=== PATIENT | male | born 1955 | race Caucasian/White ===

== ENCOUNTER 2016-07-28 16:18 | Inpatient (IN) | payer OTHER ==
--- NOTE | ~2016-07-28 | HP ---
Unit #: [id number] #: [id number] Patient: BERNICE GALLAGHER [id number] [address] [place], [place] [address] [id number] I MR#: [id number] NAME: BERNICE GALLAGHER. ROOM: 55 Age: 61 Sex: M Admission Date: 07/28/2016 : 1955 Attending Physician: Edward Marino M.D. Referring Physician: Edward Marino M.D. Primary Care Physician: [facility], HISTORY AND PHYSICAL HISTORY OF PRESENT ILLNESS This is a pleasant, 61-year-old male known to Dr. Marino. He has a past medical history of known coronary artery disease with cardiac catheterization on 04/05/2015 which showed 100% stenosis in the mid RCA, 75% stenosis in the mid LAD, and 75% stenosis in the first marginal branch of the circumflex, EF at that time was 20% to 25%, hypertension, hyperlipidemia, diabetes mellitus type 2, ischemic cardiomyopathy, status post AICD placement in January 2016, COPD, chronic kidney disease and continued tobacco abuse. The patient had been treated with medical management. He presented to [facility] after complaints of right-sided chest pain. The patient reports he was at home in his typical state of health. He had been sleeping when he awoke from sleep at approximately 11:30 or 12 o'clock with complaints of right-sided chest pain. He described the pain as sharp in nature, different from any pain he had ever felt before. He said it was also associated with diaphoresis, nausea and vomiting. Patient reports this scared him and he therefore sought treatment at the emergency room at [facility]. He was evaluated there and felt needed to be transferred here for further workup. Initial troponins here have been negative x2. EKG shows normal sinus rhythm, 68 beats per minute, nonspecific ST and T-wave abnormality in the inferolateral leads, QTc interval of 425 msec. At present he is resting in bed. His daughters are at the bedside. He denies any complaints at this time of further chest pain and states he is wanting to go home. Of note the patient does report that he has been walking some at [facility] when he goes out. He walks the length of the store and has noted increasing shortness of breath with exertion as well as increasing fatigue. However, he denies any complaints of chest pain during his walks. He denies any PND or orthopnea, denies any lower extremity swelling and states he has been compliant with all of his medications. He does continue to smoke. At present there are no signs and symptoms of congestive heart failure. The chest x-ray shows no fluid overload. PAST MEDICAL HISTORY 1. Known coronary artery disease, status post cardiac catheterization 04/05/2015 per Jamila Plasencia which revealed 100% stenosis of the mid RCA, 75% stenosis of the mid LAD and 75% stenosis of the first marginal Unit #: [id number] #: [id number] Patient: BERNICE GALLAGHER branch of the circumflex. Medical management was recommended. 2. Two-D echocardiogram in March of 2015 also shows LVEF of 20% to 25% with moderate MR. 3. Status post AICD placement January 2016 at [facility]. 4. COPD. 5. Diabetes mellitus type 2. 6. History of systolic congestive heart failure. 7. Hypertension. 8. Hyperlipidemia. 9. Chronic kidney disease. 10. Continued tobacco abuse. Patient reports he has been cutting back, states he smokes about a pack every three days. PAST SURGICAL HISTORY 1. Cardiac catheterization in the past with angioplasty at [facility] in 2006. 2. Also cardiac catheterization 2014. SOCIAL HISTORY Patient lives at home. He has a very supportive family. His daughters are present at bedside. He denies any alcohol, other than an occasional been, or illicit drug use, does have a history of smoking, states he has been cutting back. He usually smokes now about one pack every three days between him and his . ALLERGIES Shellfish. HOME MEDICATIONS 1. Lasix 20 mg p.o. daily with additional 20 if increasing shortness of breath. 2. Nitroglycerin 0.4 mg sublingual one q.5 minutes x3 doses p.r.n. chest pain. 3. Vitamin D 50,000 units p.o. weekly. 4. Symbicort 160/4.5 two puffs inhalation b.i.d. 5. ProAir two puff inhalation q.i.d. 6. Trazodone 50 mg p.o. b.i.d. 7. Multivitamin one tab p.o. daily. 8. Wellbutrin 150 mg p.o. b.i.d. 9. Aspirin 81 mg p.o. daily. 10. Lipitor 80 mg p.o. q.h.s. 11. Cozaar 50 mg p.o. daily. 12. Carvedilol 12.5 mg p.o. b.i.d. REVIEW OF SYSTEMS Review of systems was negative except for what was stated above in the HPI. PHYSICAL EXAMINATION GENERAL: This is a pleasant 61-year-old male in no acute distress. He is resting in bed. He appears comfortable. His family is at bedside. VITAL SIGNS: Temperature 97.6, respiratory rate 18 to 20, pulse 60s, blood pressure 123/69. HEENT: Trachea is midline. No thyromegaly. No lymphadenopathy. No carotid bruits. No JVD. HEART: S1, S2. No murmur, gallop or rub. CHEST: Breath sounds are diminished, worse on the right greater than Unit #: [id number] #: [id number] Patient: AILEEN,BERNICE W left. ABDOMEN: Soft, nontender, nondistended, obese. EXTREMITIES: Pulses are palpable. No pedal edema. No clubbing or cyanosis. DIAGNOSTIC STUDIES IMAGING: Chest x-ray shows no acute pulmonary findings. LABORATORY: Glucose 136, potassium 4.2, chloride 103, CO2 27, BUN 16, creatinine 1.7, glucose 192, troponins have been negative x2, hemoglobin 12.3, hematocrit 37.5, WBC is 5.9 and platelet count 220, triglycerides are 282, HDL is 26. CARDIOVASCULAR: EKG atrial paced rhythm, nonspecific ST/T wave abnormality. IMPRESSION 1. Chest pain, appears atypical. Cardiac enzymes thus far have been negative. However, the patient has a history of known three-vessel coronary artery disease with 100% stenosis in the right coronary artery, 75% in the obtuse marginal and 75% to 80% in the left anterior descending with an left ventricular ejection fraction of approximately 30%. 2. Ischemic cardiomyopathy. 3. Chronic obstructive pulmonary disease. 4. Hypertension. 5. Hyperlipidemia. 6. Diabetes mellitus type 2. 7. Continued tobacco abuse. 8. Status post automatic implantable cardioverter defibrillator in January 2016, [facility]. PLAN The patient has been admitted for evaluation. Thus far his cardiac enzymes have remained negative. His chest pain appears atypical. However, in lieu of his multivessel coronary artery disease will plan to proceed with Cardiolite Lexiscan to evaluate for any progression of his disease in his LAD or left circ. He may need a cardiac catheterization with FFR measurements performed if the stress is abnormal. This has been discussed with the patient and he is agreeable. At present he will be continued on his current medication regimen and will check labs in the a.m. as well as check a fasting lipid panel and add a hemoglobin A1C to determine how well controlled his diabetes has been. Further recommendations pending the outcome of his Lexiscan Cardiolite later this afternoon. If the patient does need cardiac catheterization would be recommended to have Renal see prior to him undergoing this to tweak up his kidneys prior to any due load. Also the patient has an allergy to shellfish and will need premedication prior to undergoing cardiac catheterization. Dictated by Pam Rome A.P.R.N. for Edward Marino M.D. Unit #: [id number] #: [id number] Patient: BERNICE GALLAGHER LMW/cf TD: 07/29/2016 20:15 JOB #: [id number] HISTORY AND PHYSICAL X Pam Rome APRN X HISTORY AND PHYSICAL
--- NOTE | ~2016-07-28 | DS ---
Unit #: [id number] #: [id number] Patient: BERNICE GALLAGHER [id number] [address] [address] [id number] I MR#: [id number] NAME: BERNICE GALLAGHER. ROOM: [facility] Age: 61 Sex: M Admission Date: 07/28/2016 : 1955 Discharge Date: 08/02/2016 Attending Physician: Edward Marino M.D. Referring Physician: Edward Marino M.D. Primary Care Physician: [facility] DISCHARGE SUMMARY DISCHARGE DIAGNOSES 1. Chest pain, ruled out for myocardial infarction. 2. Abnormal Lexiscan Cardiolite stress test on 07/29/2016, which revealed suspicion for large area of stress-induced ischemia involving the inferior wall, inferior apical, and inferoseptal wall of the left ventricle. Left ventricular ejection fraction calculated at 51%. Severe hypokinesis involving the inferior wall and the septum. High suspicion for significant coronary artery disease involving the right coronary artery territory. 3. Coronary artery disease, status post cardiac catheterization on 08/01/2016, which revealed left circumflex 70% to 75% in the proximal first obtuse marginal. Left anterior descending 75% to 80% at second septal law examiner and 60% at third septal law examiner. Right coronary artery 100% in mid segment. Distal right coronary artery fills via left to right collaterals. No LV gram due to renal insufficiency. Medical management. 4. 2D echocardiogram on 07/30/2016 was a technically difficult study. Ejection fraction 25% to 30%. Severe hypokinetic motion of the entire anteroseptal wall of the left ventricle. Moderate generalized hypokinesis of the left ventricle. Mild to moderate left ventricular hypertrophy. Impaired relaxation. Moderately enlarged right ventricle cavity with moderately reduced right ventricular function. Pacemaker/automatic implantable cardioverter-defibrillator wire seen in the right ventricle, mild tricuspid regurgitation, RVSP 28 mmHg. 5. History of ischemic cardiomyopathy with left ventricular ejection fraction 20% to 25% in 03/2015. 6. Valvular heart disease with moderate mitral regurgitation. 7. Previous cardiac catheterization in 03/2015 revealed a total chronic occlusion of the right coronary artery known since 2005. 8. Chronic obstructive pulmonary disease. 9. Hypertension. 10. Hyperlipidemia. 11. Chronic systolic congestive heart failure, now compensated. 12. Diabetes mellitus type 2, on insulin. 13. Chronic kidney disease, stage III. 14. Proteinuria. 15. Secondary hyperparathyroidism. 16. Continued tobacco abuse. DISCHARGE MEDICATIONS Albuterol 2 puffs inhalation q.i.d. as needed for shortness of breath, Symbicort 2 puffs inhalation b.i.d., Wellbutrin 150 mg p.o. b.i.d., trazodone 50 mg p.o. b.i.d., carvedilol 25 mg p.o. b.i.d., Lasix 40 mg in Unit #: [id number] #: [id number] Patient: AILEEN,BERNICE W the morning and 20 mg at night, Lipitor 80 mg p.o. at bedtime, losartan 25 mg p.o. daily, Humalog 22 units at breakfast and 18 units at dinner, multivitamin one tablet p.o. daily, aspirin 81 mg p.o. daily, Imdur 30 mg p.o. daily, nitroglycerin 0.4 mg sublingual as needed for chest pain, vitamin D 50,000 units p.o. weekly on Monday, Plavix 75 mg p.o. daily. HOSPITAL COURSE This is a 61-year-old white male, well known to Dr. Marino with a past medical history of coronary artery disease with a total chronic occlusion of the right coronary artery with collaterals from the left. The patient is known to have [id number] disease in the LAD and first obtuse marginal branch of the left circumflex. Additional past medical history includes hypertension, hyperlipidemia, diabetes mellitus type 2 on insulin, ischemic cardiomyopathy, status post AICD in 01/2016, COPD, and chronic kidney disease stage 3. The patient continues to use tobacco. He presented to [facility] with complaints of chest pain. The pain woke him from his sleep. Associating symptoms included diaphoresis, nausea, and vomiting. In the emergency department, initial cardiac enzymes were negative. EKG revealed sinus rhythm with nonspecific ST-T wave changes. He was transferred to [facility] for further evaluation. He underwent a Lexiscan Cardiolite stress test on 07/29/2016, which revealed a suspicion for large area stress-induced ischemia involving the inferior wall, inferior apical, and inferoseptal wall of the left ventricle. Left ventricular ejection fraction was calculated at 51%. 2D echocardiogram was completed on 07/30/2016 and was a technically difficult study, but revealed a left ventricular ejection fraction at 25% to 30% with severe hypokinesis of the entire anteroseptal wall of the left ventricle. There was mild to moderate LVH and some impaired relaxation. Mild tricuspid regurgitation was noted with a right ventricular systolic pressure of 28 mmHg. The patient was recommended for cardiac catheterization due to abnormal stress test. His Cozaar was placed on hold. Due to a suspected dye allergy, he was premedicated with Pepcid, prednisone, and Benadryl. Nephrology was consulted due to chronic kidney disease. The patient was placed on some fluids and Mucomyst. He was cleared for the cardiac catheterization by Nephrology. His Lasix was placed on hold in addition to his ARB. He underwent a cardiac catheterization on 08/01/[address] Marino. Coronary angiography revealed a 70% to 75% stenosis in the proximal first obtuse marginal. There was a 75% to 80% stenosis of the second septal law examiner of the LAD and a 60% stenosis at the third septal law examiner of the LAD. The right coronary artery remained chronically occluded as from previous study. The distal right coronary filled via left to right collaterals. The patient tolerated the procedure well without complication. He was tried on medical management. He was advised that if worsening symptoms of congestive heart failure occurred including shortness of breath or edema that he will need to have repeat cardiac catheterization with stent placement of the LAD and left circumflex. The patient's Lasix has been increased. His losartan has been decreased due to renal insufficiency. Telemetry reveals sinus rhythm with no arrhythmias. His carvedilol has been increased. He remains on aspirin and a high-dose statin. His Plavix has been restarted. He is on a long-acting nitrate. He has ambulated without complaints of chest pain or shortness of breath. There is no evidence of congestive heart failure on exam. He is stable and will be discharged home today. He is instructed to follow up in the office or to proceed back to the hospital for chest pain or symptoms of congestive heart failure. Post catheterization instructions have been provided as well. CHF education. The patient has been instructed to follow up with Unit #: [id number] #: [id number] Patient: BERNICE GALLAGHER Dr. Miner in 4 to 6 weeks. He has been advised to refrain from tobacco abuse and to be compliant with medications. The patient's creatinine was 1.8 at the time of evaluation, and is currently 1.6 today. The patient's diabetes appears uncontrolled. His blood glucose levels have been in the 200s during hospitalization and his A1c resulted 10.3. He is instructed to follow up with his primary care and to work on getting his diabetes under better control. TUBE SORTER Dr. Miner with Nephrology. DIAGNOSTIC STUDIES LABORATORY RESULTS: Include white blood cell count of 6.6, hemoglobin 12.7, hematocrit 36.4, platelets 231. Sodium 135, potassium 4.2, creatinine 1.6, glucose 256. PT 10.7, INR 1.0. Troponin 0.03, 0.03, and 0.03. Hemoglobin A1c 10.3. Total cholesterol 121, triglycerides 282, LDL 39, HDL 26. IMAGING STUDIES: None. CARDIOVASCULAR STUDIES: EKG reveals sinus rhythm with ST and T-wave abnormality in the inferior leads. ST-T wave changes in the anterolateral leads. QTc 416 milliseconds. PHYSICAL EXAMINATION VITAL SIGNS: Temperature 98, pulse 69, and blood pressure 106/68. CONSTITUTIONAL: This is a 61-year-old white male, in no acute distress. SKIN: Warm and dry. NECK: Supple. No jugular vein distention. No hepatojugular reflux. Normal carotid upstrokes. No carotid bruits auscultated. HEART: S1 and S2. Regular rate and rhythm. No murmurs, rubs, or gallops. Cath site is soft without hematoma. LUNGS: Bilateral breath sounds have good air entry throughout all lung yusuf. Respirations are even and nonlabored. No rales, rhonchi, or wheezes. ABDOMEN: Soft, nontender, and nondistended. Positive bowel sounds auscultated x4 quadrants. No ascites noted. EXTREMITIES: Bilateral lower extremities have no pretibial pitting edema. DP and PT pulses are 2+. Capillary refill is less than 2 seconds. DISCHARGE INSTRUCTIONS 1. The patient will be discharged home today. 2. Follow up with primary care provider in 1 to 2 weeks. 3. Follow up with Dr. Miner in 4 to 6 weeks. 4. Follow up with Dr. Marino on 08/29/2016 at 3:15 p.m. 5. Post catheterization instructions provided. 6. CHF education provided. 7. The patient has been instructed to call for weight gain greater than 3 pounds, shortness of breath, or worsening edema. 8. If the patient has signs of worsening congestive heart failure or develops recurrent chest pain, he will need to be considered for percutaneous coronary intervention of the left circumflex and LAD. 9. Prescriptions have been provided for Cozaar, Lasix, Coreg, Plavix, and nitroglycerin. 10. The patient has been advised to refrain from tobacco abuse and to control diabetes. Unit #: [id number] #: [id number] Patient: BERNICE GALLAGHER Dictated by... Zulema Baugh APRN for Yamileth Leal/quentin TD: 08/05/2016 06:04 JOB #: [id number] DISCHARGE SUMMARY Page 1 of 1 X X DISCHARGE SUMMARY
--- NOTE | ~2016-07-28 | TH ---
Unit #: [id number] #: [id number] Patient: BERNICE GALLAGHER [id number] [address] [address] [id number] I MR#: [id number] NAME: BERNICE GALLAGHER. : 1955 SEX: M STUDY DATE/TIME: UNIT: C5 ROOM: 557 STUDY DESCRIPTION: Nuclear Study Attending Physician: Edward Marino M.D. Referring Physician: Edward Marino M.D. Primary Care Physician: [facility] CARDIOLOGY REPORT EXAM Lexiscan Cardiolite Stress Test - Nuclear Portion PROCEDURE Using technetium 99m labeled Cardiolite, rest and stress SPECT images were obtained. Multiple SPECT images were obtained in various views including horizontal and vertical long axis and short axis views of the left ventricle. Images were obtained by gated SPECT method. The patient was administered 11.48 mCi of Cardiolite at rest. The patient was administered 31.5 mCi of Cardiolite after Lexiscan infusion was completed. On the stress images, there is a large area of severe decreased isotope activity involving the inferior wall and the inferoseptal wall of the left ventricle. The rest images show a medium size area of severe decreased isotope activity involving the inferior wall. Comparing rest and stress images, there is suspicion for significant ischemia involving the inferior, inferoapical and inferoseptal wall of the left ventricle. The left ventricular ejection fraction is calculated to be 51%. There is severe hypokinesis involving the inferior wall and the septum. CONCLUSION 1. Suspicion for large area of stress-induced ischemia involving the inferior wall, inferoapical and inferoseptal wall of the left ventricle. 2. The left ventricular ejection fraction is calculated to be 51%. 3. There is severe hypokinesis involving the inferior wall and the septum. 4. High suspicion for significant coronary artery disease involving the RCA territory. Clinical correlation is requested. Dictated by.Yamileth Blanca TD: 07/30/2016 06:54 JOB #: [id number] Unit #: [id number] #: [id number] Patient: BERNICE GALLAGHER CARDIOLOGY REPORT X Jayda Harrington MD <ELECTRONICALLY SIGNED> 12/03/16 [facility] CARDIOLOGY REPORT
--- NOTE | ~2016-07-28 | CO ---
Unit #: [id number] #: [id number] Patient: BERNICE GALLAGHER [id number] [address] [place], [place] [address] [id number] I MR#: [id number] NAME: BERNICE GALLAGHER. ROOM: 55 Age: 61 Sex: M Admission Date: 07/28/2016 : 1955 Attending Physician: Edward Marino M.D. Primary Care Physician: [facility] Consultation Date: 07/29/2016 CONSULTATION REPORT REASON FOR CONSULTATION Chronic kidney disease. HISTORY OF PRESENT ILLNESS Mr. Gallagher is a pleasant 61-year-old white male with known chronic kidney disease, familiar to our service, as I saw him back in 03/2015, who was readmitted for chest pain. The patient had an abnormal stress test and is going to need a heart catheterization on Monday. We were asked to see to do a prep for his heart cath with his chronic kidney disease. Despite his chronic heart problems, the patient continues to smoke but is trying to cut back. He states that he is actively been losing weight on a low carb diet, has not been retaining any fluid. He denies any shortness of breath at rest and did not have any necessarily with chest pain. He denies any urinary complaints. No swelling. He has not been using any NSAIDs. He has no history of kidney stones. PAST MEDICAL HISTORY Significant for coronary artery disease, COPD with continued tobacco abuse, hypertension, diabetes, gout, arthritis, and allergic rhinitis. PAST SURGICAL HISTORY He has had a LifeVest and a fibrillator in the past. HOME MEDICATIONS Lasix 20 mg b.i.d., nitroglycerin p.r.n., vitamin D weekly, Symbicort inhaler, ProAir inhaler, carvedilol 12.5 mg b.i.d., aspirin daily, Lipitor 80 mg daily, Humalog insulin, losartan 50 mg a day, trazodone 50 mg b.i.d., multivitamin daily, and Wellbutrin 150 mg b.i.d. ALLERGIES He has a shellfish allergy. FAMILY HISTORY Significant for kidney disease with several family members on dialysis, also has diabetes in the family. SOCIAL HISTORY The patient again continues to smoke, but is trying to cut back. No alcohol or drug abuse. REVIEW OF SYSTEMS A complete 12-point review of systems was completed with the above findings. In addition, he denies any headaches or dizziness. No fevers or chills. No nosebleed, sore throat, or earache. No palpitations. No Unit #: [id number] #: [id number] Patient: BERNICE GALLAGHER hemoptysis. No hematemesis. No bright red blood per rectum or melena. No abdominal pain. No dysuria. No hematuria. No rashes or itching. No flank pain. No night sweats or hot flashes. No intolerance to heat or cold. No bleeding issues. Unless otherwise indicated, the review of systems was negative. PHYSICAL EXAMINATION VITAL SIGNS: The patient is afebrile, pulse 62, respiratory rate 20, blood pressure 119/57. I's and O's positive by 360 mL. GENERAL: This is a pleasant 61-year-old male, sitting up in bed, watching the [employer] basketball games, in no acute distress. HEENT: Head is atraumatic and normocephalic. Eyes show pink conjunctivae with no scleral icterus. No nasal drainage or nosebleed. Oropharynx is moist. No thrush. NECK: Shows no rigidity. HEART: Regular rate and rhythm with murmur present. No rub appreciated. LUNGS: Clear with no wheezing, no rhonchi. Breathing is nonlabored. ABDOMEN: Soft, nontender, and nondistended. Bowel sounds are present. EXTREMITIES: No lower extremity cyanosis or pitting edema. SKIN: Dry. No rashes identified. GENITOURINARY: Deferred. MUSCULOSKELETAL: No CVA tenderness to palpation. NEUROLOGIC: Cranial nerves are grossly intact with no gross motor deficits. LYMPHATIC: There is no neck or cervical lymphadenopathy. PSYCHIATRIC: Mood and affect appear normal. DIAGNOSTIC STUDIES LABORATORY RESULTS: Troponin today was negative. Chemistry earlier today noteworthy for normal potassium of 4.2 and a creatinine of 1.8. Cholesterol 121, LDL 39. CBC was unremarkable. CK level was 25. Prior creatinines were reviewed and this creatinine of 1.8 looks to be right at his baseline. Hemoglobin A1c in 03/2015 was 6.1. Previous PTH level in 03/2015 was 91. Urinalysis in 2015 showed 1+ protein and no blood. IMAGING STUDIES: Kidney ultrasound on 04/06/2015 showed no hydronephrosis and smaller right kidney at 8.8 cm, left kidney was more difficult to visualize due to poor acoustic window, but there was no hydronephrosis. ASSESSMENT AND PLAN 1. Chronic kidney disease, stage 3. This is due to underlying hypertension and atherosclerotic disease. There may be some contribution from diabetes as well. His creatinine is at baseline and he will need a heart prep for his heart catheterization. We will leave him on his home medications for now, but hold his Lasix and losartan on Monday and prep with IV fluids overnight Monday into Monday. We will go ahead and start him on some Mucomyst just in case an emergent heart catheterization would be needed. 2. History of congestive heart failure with an ejection fraction of 20%. He also has right ventricular failure. The patient appears very well compensated on exam and his weight trend is actually down at home. 3. Proteinuria. We will continue losartan. I will be quantitating his urinary protein. 4. Hypertension. The patient's blood pressures are well controlled. 5. Continued tobacco abuse with a counseling provided to patient. He understands that he needs to quit. 6. Diabetes. 7. Coronary artery disease with abnormal stress with catheterization Unit #: [id number] #: [id number] Patient: BERNICE GALLAGHER pending. 8. Secondary hyperparathyroidism. I will be rechecking a PTH level and treating as needed. I would like to thank Dr. Marino for this consultation and the opportunity to participate in the evaluation and care of Mr. Gallagher. Dictated by... Manuel Miner Jr., Iraida. ELLIOT/quentin TD: 07/29/2016 23:25 JOB #: [id number] CONSULTATION REPORT X Manuel Miner MD X CONSULTATION REPORT
--- NOTE | ~2016-07-28 | EKG ---
PATIENT: BERNICE GALLAGHER UNIT #: [id number] Ventricular Rate: 72 BPM Atrial Rate: 72 BPM P-R Interval: 170 ms QRS Duration: 106 ms Q-T Interval: 380 ms QTC Calculation(Bezet): 416 ms P Magness: 80 degrees Calculated R Magness: 31 degrees Calculated T Magness: -108 degrees Diagnosis Line: Normal sinus rhythm Diagnosis Line: ST and T wave abnormality, consider inferior Diagnosis Line: ischemia Diagnosis Line: ST and T wave abnormality, consider anterolateral Diagnosis Line: ischemia Diagnosis Line: Abnormal ECG Diagnosis Line: When compared with ECG of 23-APR-2015 05:49, Diagnosis Line: T wave inversion more evident in Inferior leads Diagnosis Line: Confirmed by PIERRE BARRAGAN MD ([id number]) on 08/02/2016 Diagnosis Line: 4:38:04 AM INTERPRETING MD: LAUREL RODRIGUEZ
--- NOTE | ~2016-07-28 | HP ---
Unit #: [id number] #: [id number] Patient: BERNICE GALLAGHER [id number] [address] [address] [id number] MR#: [id number] NAME: BERNICE GALLAGHER. ROOM: [facility] Age: 61 Sex: M Admission Date: 07/28/2016 : 1955 Attending Physician: Edward Marino M.D. Referring Physician: Edward Marino M.D. Primary Care Physician: [facility]. HISTORY AND PHYSICAL ADDENDUM NOTE This is an addendum to J# [id number]. HOME MEDICATIONS 13. Humalog 22 units subcu at breakfast and 18 units subcu at dinner. Dictated by Pam Rome A.P.R.N. for Edward Marino M.D. LMW/cf TD: 07/29/2016 21:19 JOB #: [id number] HISTORY AND PHYSICAL X Pam Rome APRN HISTORY AND PHYSICAL
--- NOTE | ~2016-07-28 | ST ---
Unit #: [id number] #: [id number] Patient: BERNICE GALLAGHER [id number] [address] [address] [id number] I MR#: [id number] NAME: BERNICE GALLAGHER. : 1955 SEX: M STUDY DATE/TIME: 07/29/2016 UNIT: [id number] ROOM: 557 STUDY DESCRIPTION: Stress Test Attending Physician: Edward Marino M.D. Referring Physician: Edward Marino M.D. Primary Care Physician: [facility] CARDIOLOGY REPORT EXAM Walking Lexiscan REASON FOR EXAM Chest pain, known coronary artery disease. DESCRIPTION Baseline EKG shows normal sinus rhythm, rate of 86 beats/minute. ST-T wave abnormality is noted in the inferior lateral leads. The patient walked on the treadmill on a modified Kevin protocol with the initial intent to walk him as long as possible, per Dr. Marino's request. However, this was unable to be attained secondary to patient's extreme shortness of breath and chest tightness as well as fatigue, and leg weakness. 0.4 mg of Lexiscan was injected per protocol followed by Cardiolite while he was walking on the treadmill. During the infusion, the patient experienced complaints of shortness of breath, fatigue and, at approximately two minutes, right sided chest tightness. Rates at a 4 out of a 10 scale. There was no radiation of his pain. During the test, the patient's ST segments did worsen from baseline to approximately 2.[address] segment depression in the inferior lateral leads. There was no ectopy. The patient was only able to exercise for a total of 3 minutes 29 seconds. The test was stopped secondary to right sided chest pain, weakness in his legs and fatigue as well as shortness of breath. His chest discomfort resolved in the recovery period. IMPRESSION 1. Nondiagnostic EKG portion of walking Lexiscan Cardiolite secondary to baseline ST-T wave abnormalities. 2. There was worsening of his ST segment depression during his testing. ST segments worsened to approximately 2.5 to 3 mm depression in the inferior lateral leads. 3. The patient experienced right sided chest pain while on the treadmill, rated at a 4 out of a 10 scale with no radiation. This immediately resolved in the recovery period. He also complained of severe shortness of breath and fatigue as well as leg weakness. 4. There was no ectopy noted during the testing. 5. Please correlate with nuclear imaging. Unit #: [id number] #: [id number] Patient: BERNICE GALLAGHER Dictated by... Pam Rome A.P.R.N. for Yamileth Magdaleno/duong TD: 07/30/2016 06:59 JOB #: [id number] CARDIOLOGY REPORT X Pam Rome APRN CARDIOLOGY REPORT
[~2016-07-28 16:18] MED LIST: ACETAMINOPHEN325 MG PO; ALBUTEROL17 GM INH; AMOXICILLIN500 M1 PO; ASPIRIN325 M1 PO; ATENOLOL PO; BAYER ASPIRIN325 M1 PO; CLARITIN10 M2 PO; COLCRYS0.6 M2 PO; COLCRYS0.6 MG PO; COREG12.5 MG PO; COREG6.25 MG PO; DELTASONE20 MG PO; GLIPIZIDE10 MG PO; HUMIBID-LA600 MG PO; IMDUR-ER60 M1 PO; LASIX PO; LISINOPRIL20 MG PO; LISINOPRIL5 MG PO; LOVASTATIN20 MG PO; NITROGLYGERIN0.4 MG SL; PREDNISONE10 MG PO; PROAIR RESPICL90 MCG INH; SYMBICORT INH; VIBRAMYCIN100 M1 PO; VITAMIN D1000 UNIT PO; ZYLOPRIM100 MG PO
[2016-07-28] MEDS ORDERED: ASPIRIN81 M2 PO (17:45)
[2016-07-28] MEDS ORDERED: LIPITOR PO (17:46)
[2016-07-28] MEDS ORDERED: HUMALOG100 U/M1 (18:42)
[2016-07-28] MEDS ORDERED: LOSARTAN POTASS50 MG PO (18:42)
[2016-07-28] MEDS ORDERED: DESYREL50 MG PO (18:42)
[2016-07-28] MEDS ORDERED: MULTI VITAMIN1 EACH PO (18:43)
[2016-07-28] MEDS ORDERED: WELLBUTRIN PO (18:43)
[2016-07-28 20:38] LABS: CK TOTAL 26 IU/L (36-174)
[2016-07-29 01:38] LABS: CK TOTAL 25 IU/L (36-174)
[2016-07-29 05:12] LABS: BASOPHIL# 0.1 X10e3 (0-0.3); BASOPHIL% 0.9 % (0-2.5); EOSINOPHIL# 0.2 X10e3 (0-0.7); EOSINOPHIL% 3.6 % (0.0-7.0); HEMATOCRIT 37.5 % (38.0-50.0); HEMOGLOBIN 12.3 gm/dL (13.0-16.0); LYMPHOCYTE# 2.1 X10e3 (1.0-3.5); LYMPHOCYTE% 35.8 % (17.0-45.0); MEAN CELL VOLUME 87.9 FL (83-96); MEAN CORPUSCULAR HEMOGLOBIN 28.9 PG (28-34); MEAN CORPUSCULAR HGB CONC 32.9 g/dL (30-36); MONOCYTE# 0.5 X10e3 (0-1.0); MONOCYTE% 8.7 % (3.0-12.0); PLATELET COUNT 220 X10e3 (140-420); RED BLOOD COUNT 4.27 X10e (3.90-5.60); RED CELL DISTRIBUTION WIDTH 14.7 % (11.0-15.5); WHITE BLOOD COUNT 5.9 X10e3 (4.0-10.5)
[2016-07-29 05:19] LABS: DIFF IND NO
[2016-07-29 06:02] LABS: BUN/CREATININE RATIO 8.88; CALCIUM SERUM 8.8 mg/dL (8.4-10.2); CREATININE SERUM 1.8 mg/dL (0.6-1.4); POTASSIUM 4.2 mmol/L (3.5-5.1)
[2016-07-29 08:25] LABS: CK TOTAL 26 IU/L (36-174)
[2016-07-30 08:12] LABS: HEMATOCRIT 37.7 % (38.0-50.0); HEMOGLOBIN 12.4 gm/dL (13.0-16.0); MEAN CELL VOLUME 88.6 FL (83-96); MEAN CORPUSCULAR HEMOGLOBIN 29.2 PG (28-34); MEAN PLATELET VOLUME 8.3 FL (6.5-11.5); RED BLOOD COUNT 4.26 X10e (3.90-5.60); RED CELL DISTRIBUTION WIDTH 14.4 % (11.0-15.5); WHITE BLOOD COUNT 6.8 X10e3 (4.0-10.5)
[2016-07-30 08:46] LABS: BUN/CREATININE RATIO 11.87; CALCIUM SERUM 9.2 mg/dL (8.4-10.2); CREATININE SERUM 1.6 mg/dL (0.6-1.4); GLOM FILT RATE Estimated 46.9 mL/min (>60); PHOSPHOROUS 3.1 mg/dL (2.5-4.6); POTASSIUM 4.3 mmol/L (3.5-5.1)
[2016-07-31 06:10] LABS: HEMATOCRIT 37.9 % (38.0-50.0); HEMOGLOBIN 12.4 gm/dL (13.0-16.0); MEAN CELL VOLUME 88.3 FL (83-96); MEAN CORPUSCULAR HEMOGLOBIN 28.7 PG (28-34); MEAN CORPUSCULAR HGB CONC 32.6 g/dL (30-36); MEAN PLATELET VOLUME 8.2 FL (6.5-11.5); RED BLOOD COUNT 4.3 X10e (3.90-5.60); RED CELL DISTRIBUTION WIDTH 14.3 % (11.0-15.5); WHITE BLOOD COUNT 7.9 X10e3 (4.0-10.5)
[2016-07-31 06:54] LABS: BUN/CREATININE RATIO 12.63; CALCIUM SERUM 9.5 mg/dL (8.4-10.2); CREATININE SERUM 1.9 mg/dL (0.6-1.4); GLOM FILT RATE Estimated 38.5 mL/min (>60); POTASSIUM 4.8 mmol/L (3.5-5.1)
[2016-07-31 10:54] LABS: URINE APPEARANCE CLEAR; URINE BILIRUBIN NEG (NEG); URINE BLOOD NEG (NEG); URINE COLOR YELLOW; URINE GLUCOSE 100 MG/DL (NEG); URINE KETONE NEG (NEG); URINE LEUKOCYTE ESTERASE NEG (NEG); URINE NITRATE NEG (NEG); URINE PH 5.5 (5-8); URINE PROTEIN NEG (NEG); URINE SPECIFIC GRAVITY 1.015 (1.003-1.035); URINE UROBILINOGEN 0.2 MG/DL (NEG)
[2016-08-01 06:41] LABS: HEMATOCRIT 36.9 % (38.0-50.0); HEMOGLOBIN 12.1 gm/dL (13.0-16.0); MEAN CELL VOLUME 88.4 FL (83-96); MEAN CORPUSCULAR HEMOGLOBIN 29.1 PG (28-34); MEAN CORPUSCULAR HGB CONC 32.9 g/dL (30-36); MEAN PLATELET VOLUME 8.6 FL (6.5-11.5); RED BLOOD COUNT 4.18 X10e (3.90-5.60); RED CELL DISTRIBUTION WIDTH 14.5 % (11.0-15.5); WHITE BLOOD COUNT 6.6 X10e3 (4.0-10.5)
[2016-08-01 06:48] LABS: PARTIAL THROMBOPLASTIN TIME 23.8 SECONDS (23.5-31.3); PROTHROMBIN TIME (PATIENT) 10.7 SECONDS (9.6-11.5)
[2016-08-01 07:16] LABS: BUN/CREATININE RATIO 15.26; CREATININE SERUM 1.9 mg/dL (0.6-1.4); GLOM FILT RATE Estimated 38.5 mL/min (>60)
[2016-08-02 06:58] LABS: BUN/CREATININE RATIO 15.62; CALCIUM SERUM 8.9 mg/dL (8.4-10.2); CREATININE SERUM 1.6 mg/dL (0.6-1.4); GLOM FILT RATE Estimated 46.9 mL/min (>60); POTASSIUM 4.4 mmol/L (3.5-5.1)
[2016-08-02] MEDS ORDERED: IMDUR-ER30 M1 PO (12:41)
[2016-08-02] MEDS ORDERED: CLOPIDOGREL75 MG PO (13:58)
[2016-08-03 18:31] LABS: CALCIUM (PTHINTACT) 9.3 mg/dL (8.6-10.3)
== END 2016-08-02 14:37 | disposition home or self-care (01) | DRG 287 ==
LOC: CEDOF 16:18 → C5B 17:20
PROVIDERS: Internal Medicine Cardiovascular Disease; Internal Medicine Nephrology; Nurse Practitioner
PROC: B24BYZZ Ultrasonography of Heart with Aorta using Other Contrast (ICD-10-PCS; 2016-07-30)
PROC: 4A023N7 Measurement of Cardiac Sampling and Pressure, Left Heart, Percutaneous Approach (ICD-10-PCS; principal; 2016-08-01)
PROC: B211YZZ Fluoroscopy of Multiple Coronary Arteries using Other Contrast (ICD-10-PCS; 2016-08-01)
DX: I25.10 Atherosclerotic heart disease of native coronary artery without angina pectoris (principal); E11.22 Type 2 diabetes mellitus with diabetic chronic kidney disease; I13.0 Hypertensive heart and chronic kidney disease with heart failure and stage 1 through stage 4 chronic kidney disease, or unspecified chronic kidney disease; I50.22 Chronic systolic (congestive) heart failure; N25.81 Secondary hyperparathyroidism of renal origin; E78.5 Hyperlipidemia, unspecified; I25.5 Ischemic cardiomyopathy; F17.210 Nicotine dependence, cigarettes, uncomplicated; Z95.810 Presence of automatic (implantable) cardiac defibrillator; I34.0 Nonrheumatic mitral (valve) insufficiency; Z91.013 Allergy to seafood; Z79.82 Long term (current) use of aspirin; M19.90 Unspecified osteoarthritis, unspecified site; J30.9 Allergic rhinitis, unspecified; N18.3 Chronic kidney disease, stage 3 (moderate); R80.9 Proteinuria, unspecified; Z71.6 Tobacco abuse counseling; G47.33 Obstructive sleep apnea (adult) (pediatric)
CPT/HCPCS: 78452; 80048; 80061; 81003; 82310; 82550; 82570; 82947; 83036; 83970; 84100; 84156; 84484; 85025; 85027; 85610; 85730; 93005; 93017; 93306; 94640; 94760; A9500; C1769; C1887; C1894; J1644; J1650; J1815; J2250; J2785; J3010